=== PATIENT | male | born 1990 ===

== ENCOUNTER 2024-06-22 21:03 | Emergency (ER) | payer MEDICARE ==
[~2024-06-22] VITALS: Ht 170.2 cm; Wt 110.0 kg
[2024-06-22 21:14] VITALS: BP 127/89; PULSE 110; RESP 14; TEMP 98.2; O2SAT 94
== END 2024-06-22 21:28 ==
LOC: ER 21:04
DX: M54.2 Cervicalgia (principal); M54.9 Dorsalgia, unspecified; G89.29 Other chronic pain; Z88.8 Allergy status to other drugs, medicaments and biological substances; V89.2XXA Person injured in unspecified motor-vehicle accident, traffic, initial encounter; Y93.89 Activity, other specified; Y92.410 Unspecified street and highway as the place of occurrence of the external cause; Y99.8 Other external cause status
CPT/HCPCS: 99283